=== PATIENT | female | born 1950 | race Caucasian/White ===

== ENCOUNTER 2016-08-18 11:41 | Outpatient (CLI) | payer OTHER ==
--- NOTE | 2016-08-18 12:38 | DIAGNOSTIC IMAGING REPORT ---
PROCEDURE: XR KNEE 3 VIEWS - RIGHT INDICATION: RIGHT KNEE PAIN TECHNIQUE: Three views. COMPARISON: None. FINDINGS: No fracture or dislocation. There is osteoarthritis with osteophyte formation and medial joint space narrowing. IMPRESSION: 1. No fracture dislocation. Osteoarthritis.
== END 2016-08-18 23:00 ==
LOC: XR SRH 11:41 → LAB SRH 11:41 → XR SRH 23:00
DX: M17.11 Unilateral primary osteoarthritis, right knee (principal)

== ENCOUNTER → 2016-10-05 | Outpatient (CLI) | payer OTHER ==
--- NOTE | 2016-10-05 15:12 | DIAGNOSTIC IMAGING REPORT ---
PROCEDURE: MG BILATERAL SCREENING W/CAD INDICATION: Screening. Family history breast carcinoma (sister). TECHNIQUE: Bilateral CC and MLO digital views. COMPARISON: Compared to 06/19/2010, 02/12/2006, and 07/07/2004. FINDINGS: Computer-aided detection applied. Mildly dense with a few dystrophic calcifications. No change. IMPRESSION: 1. Negative mammogram. RESULT CODE: 1- Negative. A. A negative report should not delay biopsy if a dominant or clinically suspicious mass is present. 10-15% of cancers are not identified by x-ray. B. A negative report may reinforce clinical impression. C. Adenosis and dense breasts may obscure an underlying neoplasm. D. False positive reports average 6-10%. E.. A yearly screening mammogram is recommended. A reminder letter will be scheduled.
== END ==
LOC: MAM SRH 13:30
DX: [UNRECOGNIZED DIAGNOSIS CODE] (principal); V16.3 Person boarding or alighting a pedal cycle injured in collision with other nonmotor vehicle in nontraffic accident